=== PATIENT | female | born 1965 | race Caucasian/White ===

== ENCOUNTER 2019-03-23 10:24 | Emergency (ER) | payer SELFPAY ==
[~2019-03-23] VITALS: Ht 167.6 cm; Wt 86.4 kg
[2019-03-23 10:56] LABS: BILIRUBIN,URINE NEGATIVE (NEGATIVE); GLUCOSE, URINE (UA) NEGATIVE (NEGATIVE); KETONES,URINE NEGATIVE (NEGATIVE); LEUKOCYTE ESTERASE ,URINE MODERATE (NEGATIVE); NITRATE,URINE NEGATIVE (NEGATIVE); OCCULT BLOOD,URINE TRACE (NEGATIVE); PH,URINE 7.5 (5.0-8.0); PROTEIN,URINE NEGATIVE (NEGATIVE); UROBILINOGEN,URINE 0.2 mg/dL (<=1.0)
[2019-03-23 10:57] LABS: APPEARANCE,URINE HAZY (CLEAR)
[2019-03-23 11:05] LABS: BACTERIA,URINE Rare /HPF (None Seen); RBC,URINE 0-2 /HPF (0-2); RENAL EPITHELIAL CELLS,URINE Moderate /LPF (None Seen); SQUAMOUS EPITHELIAL CELL,UR Moderate /LPF (None Seen)
[2019-03-23 11:10] LABS: BASOPHILS % (AUTO) 0.3 % (0.0-2.0); EOSINOPHILS % (AUTO) 1.4 % (1.0-6.0); HEMATOCRIT 39.2 % (36-46); HEMOGLOBIN 12.7 g/dL (12.0-16.0); LYMPHOCYTES # (AUTO) 1.7 K/uL (1.0-4.8); LYMPHOCYTES % (AUTO) 32.1 % (22.0-44.0); MEAN CORPUSCULAR HGB CONC 32.5 G/dL (31.0-37.0); MEAN CORPUSCULAR VOLUME 89 fL (80-100); MONOCYTES # (AUTO) 0.3 K/uL (0.1-1.0); MONOCYTES % (AUTO) 6.4 % (2.0-9.0); NEUTROPHILS # (AUTO) 3.2 K/uL (1.8-7.7); NEUTROPHILS % (AUTO) 59.8 % (40.0-70.0); PLATELET COUNT (AUTO) 260 K/uL (150-450); RED BLOOD CELL COUNT(AUTO) 4.38 MIL/uL (4.00-5.20); RED CELL DISTRIBUTION WIDTH 13.9 % (11.5-14.5)
[2019-03-23 11:20] LABS: CALCIUM, TOTAL 9.5 mg/dL (8.8-10.5); CREATININE 1.07 mg/dL (0.60-1.30); POTASSIUM 3.8 mmol/L (3.5-5.1)
[2019-03-23 11:27] LABS: ALBUMIN 3.8 g/dL (3.4-5.0); BILIRUBIN,TOTAL 0.3 mg/dL (0.1-1.0); TOTAL PROTEIN, SERUM 7.7 g/dL (6.4-8.2)
[2019-03-23 13:39] VITALS: BP 134/77
== END 2019-03-23 14:22 | disposition home or self-care (01) ==
LOC: EMS 10:25
DX: F43.9 Reaction to severe stress, unspecified (principal); R07.89 Other chest pain; R42 Dizziness and giddiness; I10 Essential (primary) hypertension
CPT/HCPCS: 87086; 93005

== ENCOUNTER 2019-10-18 03:42 | Emergency (ER) | payer MEDICAID, OTHER ==
[~2019-10-18] VITALS: Ht 167.6 cm; Wt 90.0 kg
[2019-10-18] MEDS ORDERED: SODIUM CHLORIDE 0.9% 1,000 ML IV ONE (04:30)
[2019-10-18] MEDS ORDERED: ONDANSETRON HCL 4 MG/2 ML VIAL IVP ONE (04:30)
[2019-10-18] MEDS ORDERED: KETOROLAC TROMETHAMINE 30 MG/ML VIAL IVP ONE (04:30)
[2019-10-18] MEDS ORDERED: ACETAMINOPHEN 500 MG TABLET PO ONE (05:00)
[2019-10-18 05:05] LABS: BASOPHILS % (AUTO) 0.2 % (0.0-2.0); EOSINOPHILS % (AUTO) 0 % (1.0-6.0); HEMATOCRIT 36.1 % (36-46); HEMOGLOBIN 11.8 g/dL (12.0-16.0); LYMPHOCYTES # (AUTO) 0.4 K/uL (1.0-4.8); LYMPHOCYTES % (AUTO) 8.3 % (22.0-44.0); MEAN CORPUSCULAR HGB CONC 32.7 G/dL (31.0-37.0); MEAN CORPUSCULAR VOLUME 89 fL (80-100); MONOCYTES # (AUTO) 0.2 K/uL (0.1-1.0); MONOCYTES % (AUTO) 3.8 % (2.0-9.0); NEUTROPHILS # (AUTO) 3.9 K/uL (1.8-7.7); PLATELET COUNT (AUTO) 192 K/uL (150-450); RED BLOOD CELL COUNT(AUTO) 4.07 MIL/uL (4.00-5.20); RED CELL DISTRIBUTION WIDTH 13.9 % (11.5-14.5)
[2019-10-18 05:06] LABS: NEUTROPHILS % (AUTO) 87.7 % (40.0-70.0)
[2019-10-18 05:14] LABS: CALCIUM, TOTAL 8.2 mg/dL (8.8-10.5); CREATININE 1.05 mg/dL (0.60-1.30); POTASSIUM 3.8 mmol/L (3.5-5.1)
[2019-10-18 05:20] LABS: ALBUMIN 3.1 g/dL (3.4-5.0); BILIRUBIN,TOTAL 0.2 mg/dL (0.1-1.0); TOTAL PROTEIN, SERUM 6.7 g/dL (6.4-8.2)
[2019-10-18 05:22] LABS: LACTIC ACID 0.6 mmol/L (0.4-2.0)
[2019-10-18 05:25] LABS: PLATELET MORPHOLOGY COMMENT GIANT PLTS PRESENT
[2019-10-18 05:32] LABS: APPEARANCE,URINE CLEAR (CLEAR); BILIRUBIN,URINE NEGATIVE (NEGATIVE); GLUCOSE, URINE (UA) NEGATIVE (NEGATIVE); KETONES,URINE NEGATIVE (NEGATIVE); LEUKOCYTE ESTERASE ,URINE NEGATIVE (NEGATIVE); NITRATE,URINE NEGATIVE (NEGATIVE); OCCULT BLOOD,URINE TRACE (NEGATIVE); PROTEIN,URINE TRACE (NEGATIVE); UROBILINOGEN,URINE 0.2 mg/dL (<=1.0)
[2019-10-18 05:37] LABS: BACTERIA,URINE None Seen /HPF (None Seen); RBC,URINE 0-2 /HPF (0-2); SQUAMOUS EPITHELIAL CELL,UR Many /LPF (None Seen)
[2019-10-18 06:22] VITALS: BP 106/65
[2019-10-20] MEDS ORDERED: IBUP-2070 PO (08:51)
[2019-10-20] MEDS ORDERED: CEPH-582 PO (08:51)
== END 2019-10-18 06:24 | disposition home or self-care (01) ==
LOC: EMS 03:42
DX: K52.9 Noninfective gastroenteritis and colitis, unspecified (principal); B97.29 Other coronavirus as the cause of diseases classified elsewhere
CPT/HCPCS: 36415; 71045; 74176; 80053; 81001; 83605; 83690; 84484; 85025; 87635; 93005; 96374; 96375; 99285; J1885; J2405; J7030; 96361

== ENCOUNTER 2023-08-04 17:38 | Inpatient (IN) | payer OTHER ==
[~2023-08-04] VITALS: Ht 167.6 cm; Wt 78.7 kg
[~2023-08-04 17:38] MED LIST: ACYC-138 PO; ASPI-1444 PO; ATOR20TA PO; DEXA4 PO; FURO20 PO; LENA25CA PO; LORA10TA7 PO; MULT-1192 PO; OXYB5TAB20 PO; PANT-31 PO
[2023-08-04] MEDS ORDERED: DEXA4TAB PO (17:52)
[2023-08-04 19:47] LABS: APPEARANCE,URINE CLEAR (CLEAR); BILIRUBIN,URINE NEGATIVE (NEGATIVE); COLOR,URINE YELLOW (YELLOW); GLUCOSE, URINE (UA) NEGATIVE (NEGATIVE); KETONES,URINE NEGATIVE (NEGATIVE); LEUKOCYTE ESTERASE ,URINE NEGATIVE (NEGATIVE); NITRATE,URINE NEGATIVE (NEGATIVE); OCCULT BLOOD,URINE LARGE (NEGATIVE); PH,URINE 7.5 (5.0-8.0); PROTEIN,URINE >600,SEE CONFIRM mg/dL (NEGATIVE); UROBILINOGEN,URINE <=1.0 mg/dL (<=1.0)
[2023-08-04 19:50] LABS: BASOPHILS % (AUTO) 0.2 % (0.0-2.0); EOSINOPHILS % (AUTO) 0.3 % (1.0-6.0); HEMATOCRIT 35.2 % (36-46); HEMOGLOBIN 11.8 g/dL (12.0-16.0); LYMPHOCYTES # (AUTO) 0.2 K/uL (1.0-4.8); LYMPHOCYTES % (AUTO) 16.6 % (22.0-44.0); MEAN CORPUSCULAR HEMOGLOBIN 31.2 pg (26.0-34.0); MEAN CORPUSCULAR HGB CONC 33.5 G/dL (31.0-37.0); MEAN CORPUSCULAR VOLUME 93 fL (80-100); MONOCYTES # (AUTO) 0.1 K/uL (0.1-1.0); NEUTROPHILS % (AUTO) 76.9 % (40.0-70.0); PLATELET COUNT (AUTO) 188 K/uL (150-450); RED BLOOD CELL COUNT(AUTO) 3.79 MIL/uL (4.00-5.20); RED CELL DISTRIBUTION WIDTH 16.8 % (11.5-14.5); WHITE BLOOD COUNT (AUTO) 1.3 K/uL (4.5-11.0)
[2023-08-04 19:51] LABS: CALCIUM, TOTAL 8.4 mg/dL (8.8-10.5); CREATININE 0.98 mg/dL (0.60-1.30); POTASSIUM 3.6 mmol/L (3.5-5.1)
[2023-08-04 19:57] LABS: ALBUMIN 1.9 g/dL (3.4-5.0); BILIRUBIN,TOTAL 0.3 mg/dL (0.1-1.0)
[2023-08-04 19:59] LABS: SULFOSALICYLIC ACID,URINE 3+ (Negative)
[2023-08-04] MEDS ORDERED: 0.9% SODIUM CHLORIDE 10 ML SYRINGE IVP PRN (20:00)
[2023-08-04] MEDS ORDERED: SODIUM CHLORIDE 0.9% 2,350 ML IV ONE (20:00)
[2023-08-04 20:03] LABS: BACTERIA,URINE None Seen /HPF (None Seen); SQUAMOUS EPITHELIAL CELL,UR Few /LPF (None Seen); WBC,URINE 0-2 /HPF (0-5)
[2023-08-04] MEDS ORDERED: CefTRIAXone 1 GM/DEXTROSE 50 ML IV ONE (20:15)
[2023-08-04] MEDS ORDERED: IOHEXOL 9 MG/ML 500 ML BOTTLE PO ONE (20:15)
[2023-08-04 20:39] LABS: PROTHROMBIN TIME 10.9 SEC (9.4-11.6)
[2023-08-04 20:52] LABS: LACTIC ACID 2.7 mmol/L (0.4-2.0)
[2023-08-04 20:58] LABS: INFLUENZA A-RTPCR,COMBO NEGATIVE FOR FLU A (NEGATIVE); INFLUENZA B-RTPCR,COMBO NEGATIVE FOR FLU B (NEGATIVE); RESPIRATORY SYNCYTIAL VRS-PCR NEGATIVE (NEGATIVE); SARS COVID19 RTPCR, COMBO NEGATIVE (NEGATIVE)
[2023-08-04] MEDS ORDERED: IOHEXOL 350 MG/ML 100 ML VIAL ONE (22:33)
[2023-08-04] MEDS ORDERED: SODIUM CHLORIDE 0.9% 100 ML ONE (22:33)
[2023-08-04] MEDS ORDERED: AZITHROMYCIN 500 MG/NS 250 ML IV ONE (23:45)
[2023-08-05] MEDS ORDERED: FentaNYL CITRATE PF 100 MCG/2 ML VIAL IVP ONE
[2023-08-05] MEDS ORDERED: ACETAMINOPHEN 325 MG TABLET PO PRN ×2 (00:30→07:45)
[2023-08-05] MEDS ORDERED: 0.9% SODIUM CHLORIDE 10 ML SYRINGE IVP PRN (00:30)
[2023-08-05] MEDS ORDERED: ONDANSETRON HCL 4 MG/2 ML VIAL IVP PRN ×2 (00:30→07:45)
[2023-08-05 01:54] VITALS: BP 142/59; PULSE 78; RESP 20; TEMP 100.1
[2023-08-05 06:07] VITALS: BP 105/49; PULSE 67; RESP 18; TEMP 98.2
[2023-08-05 07:18] VITALS: BP 109/55; PULSE 64; RESP 18; TEMP 98.3
[2023-08-05 07:31] LABS: ANION GAP 8 mmol/L (8-16); CALCIUM, TOTAL 7.8 mg/dL (8.8-10.5); CARBON DIOXIDE 27 mmol/L (22-29); CHLORIDE 104 mmol/L (98-107); CREATININE 0.91 mg/dL (0.60-1.30); GLOMERULAR FILTR. RATE CALC > 60 mL/min (>60); GLUCOSE,RANDOM 83 mg/dL (70-110); POTASSIUM 3.7 mmol/L (3.5-5.1); SODIUM SERUM 139 mmol/L (136-145); UREA NITROGEN, BLOOD 6 mg/dL (7-18)
[2023-08-05] MEDS ORDERED: BISACODYL 10 MG RECTAL RECTAL SUPPOSITORY PR PRN (07:45)
[2023-08-05] MEDS ORDERED: ZOLPIDEM TARTRATE 5 MG TABLET PO PRN (07:45)
[2023-08-05] MEDS ORDERED: HYDROCODONE/ACETAMINOPHEN 5-325 MG TABLET PO PRN (07:45)
[2023-08-05] MEDS ORDERED: MAGNESIUM HYDROXIDE SUSPENSION 30 ML UDCUP PO PRN (07:45)
[2023-08-05] MEDS ORDERED: MORPHINE SULFATE 2 MG/ML SYRINGE IVP PRN (07:45)
[2023-08-05] MEDS ORDERED: ALBUTEROL SULFATE 2.5 MG/0.5 ML NEB SOLUTION NEB PRN (07:45)
[2023-08-05] MEDS ORDERED: IPRATROPIUM BROMIDE 0.5 MG/2.5 ML NEB SOLUTION NEB PRN (07:45)
[2023-08-05 07:55] LABS: BASOPHILS % (AUTO) 0.4 % (0.0-2.0); EOSINOPHILS % (AUTO) 0.3 % (1.0-6.0); HEMATOCRIT 31.8 % (36-46); HEMOGLOBIN 10.8 g/dL (12.0-16.0); LYMPHOCYTES # (AUTO) 0.2 K/uL (1.0-4.8); LYMPHOCYTES % (AUTO) 25.8 % (22.0-44.0); MEAN CORPUSCULAR HEMOGLOBIN 31.4 pg (26.0-34.0); MEAN CORPUSCULAR HGB CONC 33.8 G/dL (31.0-37.0); MEAN CORPUSCULAR VOLUME 93 fL (80-100); MONOCYTES # (AUTO) 0.1 K/uL (0.1-1.0); MONOCYTES % (AUTO) 8.5 % (2.0-9.0); NEUTROPHILS # (AUTO) 0.6 K/uL (1.8-7.7); PLATELET COUNT (AUTO) 169 K/uL (150-450); RED BLOOD CELL COUNT(AUTO) 3.43 MIL/uL (4.00-5.20); RED CELL DISTRIBUTION WIDTH 16.9 % (11.5-14.5)
[2023-08-05] MEDS ORDERED: SODIUM CHLORIDE 0.9% 500 ML IV ONE (08:55)
[2023-08-05] MEDS: HEPARIN SODIUM,PORCINE 5,000 UNITS/ML VIAL SQ SCH ×3 (08:56→23:27)
[2023-08-05] MEDS: PANTOPRAZOLE SODIUM 40 MG DR TABLET PO SCH (08:57)
[2023-08-05] MEDS: ASPIRIN 81 MG DR TABLET PO SCH (08:57)
[2023-08-05] MEDS: FUROSEMIDE 20 MG TABLET PO SCH (08:57)
[2023-08-05] MEDS: LEVOFLOXACIN 750 MG/D5% WATER 150 ML IV SCH (08:58)
[2023-08-05] MEDS: OXYBUTYNIN CHLORIDE 5 MG TABLET PO SCH ×2 (08:58→20:59)
[2023-08-05] MEDS: LORATADINE 10 MG TABLET PO SCH (08:58)
[2023-08-05] MEDS: DOCUSATE SODIUM 100 MG CAPSULE PO SCH ×2 (08:59→20:57)
[2023-08-05 11:29] VITALS: BP 121/64; PULSE 71; RESP 19; TEMP 98.3
[2023-08-05 15:34] VITALS: BP 124/72; PULSE 70; RESP 18; TEMP 98.3
[2023-08-05] MEDS: BENZONATATE 100 MG CAPSULE PO SCH ×2 (18:03→20:59)
[2023-08-05] MEDS: ATORVASTATIN CALCIUM 20 MG TABLET PO SCH (20:59)
[2023-08-05] MEDS ORDERED: BENZONATATE 100 MG CAPSULE PO SCH (21:00)
[2023-08-05 21:30] VITALS: BP 139/76; PULSE 88; RESP 18; TEMP 98.4
[2023-08-06] VITALS (7 sets, daily range): BP systolic 110–143; BP diastolic 45–82; PULSE 59–83; RESP 18–19; TEMP 98.2–98.6
[2023-08-06 07:01] LABS: BASOPHILS % (AUTO) 0.3 % (0.0-2.0); EOSINOPHILS % (AUTO) 2.7 % (1.0-6.0); HEMATOCRIT 31.2 % (36-46); HEMOGLOBIN 10.8 g/dL (12.0-16.0); LYMPHOCYTES # (AUTO) 0.2 K/uL (1.0-4.8); LYMPHOCYTES % (AUTO) 27.5 % (22.0-44.0); MEAN CORPUSCULAR HEMOGLOBIN 31.7 pg (26.0-34.0); MEAN CORPUSCULAR HGB CONC 34.7 G/dL (31.0-37.0); MEAN CORPUSCULAR VOLUME 92 fL (80-100); MONOCYTES # (AUTO) 0.1 K/uL (0.1-1.0); MONOCYTES % (AUTO) 10.7 % (2.0-9.0); NEUTROPHILS # (AUTO) 0.5 K/uL (1.8-7.7); NEUTROPHILS % (AUTO) 58.8 % (40.0-70.0); RED CELL DISTRIBUTION WIDTH 16.4 % (11.5-14.5)
[2023-08-06 07:06] LABS: CARBON DIOXIDE 31 mmol/L (22-29); CREATININE 0.81 mg/dL (0.60-1.30); GLOMERULAR FILTR. RATE CALC > 60 mL/min (>60); GLUCOSE,RANDOM 90 mg/dL (70-110); UREA NITROGEN, BLOOD 6 mg/dL (7-18)
[2023-08-06 07:16] LABS: ANION GAP 5 mmol/L (8-16); CHLORIDE 105 mmol/L (98-107); POTASSIUM 3.3 mmol/L (3.5-5.1); SODIUM SERUM 141 mmol/L (136-145)
[2023-08-06 07:20] LABS: PLATELET COUNT (AUTO) 158 K/uL (150-450)
[2023-08-06 07:23] LABS: WHITE BLOOD COUNT (AUTO) 1.2 K/uL (4.5-11.0)
[2023-08-06] MEDS: FUROSEMIDE 20 MG TABLET PO SCH (09:00)
[2023-08-06] MEDS: DOCUSATE SODIUM 100 MG CAPSULE PO SCH ×2 (09:00→21:39)
[2023-08-06] MEDS: LEVOFLOXACIN 750 MG/D5% WATER 150 ML IV SCH (10:10)
[2023-08-06] MEDS: HEPARIN SODIUM,PORCINE 5,000 UNITS/ML VIAL SQ SCH ×3 (10:11→23:59)
[2023-08-06] MEDS: ASPIRIN 81 MG DR TABLET PO SCH (10:11)
[2023-08-06] MEDS: PANTOPRAZOLE SODIUM 40 MG DR TABLET PO SCH (10:12)
[2023-08-06] MEDS: LORATADINE 10 MG TABLET PO SCH (10:12)
[2023-08-06] MEDS: BENZONATATE 100 MG CAPSULE PO SCH ×3 (10:12→21:39)
[2023-08-06] MEDS: OXYBUTYNIN CHLORIDE 5 MG TABLET PO SCH ×2 (10:13→21:39)
[2023-08-06] MEDS ORDERED: POTASSIUM CHL 10 MEQ/WATER 50 ML IV PRN (13:00)
[2023-08-06] MEDS ORDERED: POTASSIUM CHLORIDE 20 MEQ ER TABLET PO PRN (13:00)
[2023-08-06] MEDS ORDERED: ALBUTEROL SULFATE 2.5 MG/0.5 ML NEB SOLUTION NEB PRN (13:00)
[2023-08-06] MEDS: ATORVASTATIN CALCIUM 20 MG TABLET PO SCH (21:39)
[2023-08-07 05:11] VITALS: BP 111/70; PULSE 65; RESP 20; TEMP 98
[2023-08-07 06:51] LABS: ANION GAP 8 mmol/L (8-16); CALCIUM, TOTAL 8.4 mg/dL (8.8-10.5); CARBON DIOXIDE 30 mmol/L (22-29); CHLORIDE 105 mmol/L (98-107); CREATININE 0.85 mg/dL (0.60-1.30); GLOMERULAR FILTR. RATE CALC > 60 mL/min (>60); GLUCOSE,RANDOM 97 mg/dL (70-110); POTASSIUM 3.6 mmol/L (3.5-5.1); SODIUM SERUM 143 mmol/L (136-145); UREA NITROGEN, BLOOD 8 mg/dL (7-18)
[2023-08-07 08:10] LABS: BASOPHILS % (AUTO) 0.9 % (0.0-2.0); EOSINOPHILS % (AUTO) 9.2 % (1.0-6.0); HEMATOCRIT 33.7 % (36-46); HEMOGLOBIN 11.5 g/dL (12.0-16.0); LYMPHOCYTES # (AUTO) 0.2 K/uL (1.0-4.8); LYMPHOCYTES % (AUTO) 20.1 % (22.0-44.0); MEAN CORPUSCULAR HEMOGLOBIN 31.5 pg (26.0-34.0); MEAN CORPUSCULAR HGB CONC 34.3 G/dL (31.0-37.0); MEAN CORPUSCULAR VOLUME 92 fL (80-100); MONOCYTES # (AUTO) 0.1 K/uL (0.1-1.0); MONOCYTES % (AUTO) 12.5 % (2.0-9.0); NEUTROPHILS # (AUTO) 0.5 K/uL (1.8-7.7); NEUTROPHILS % (AUTO) 57.3 % (40.0-70.0); PLATELET COUNT (AUTO) 122 K/uL (150-450); RED BLOOD CELL COUNT(AUTO) 3.66 MIL/uL (4.00-5.20); RED CELL DISTRIBUTION WIDTH 16.2 % (11.5-14.5)
[2023-08-07 08:26] LABS: WHITE BLOOD COUNT (AUTO) 0.9 K/uL (4.5-11.0)
[2023-08-07 08:40] VITALS: BP 109/48; PULSE 78; RESP 19; TEMP 97.7
[2023-08-07] MEDS: HEPARIN SODIUM,PORCINE 5,000 UNITS/ML VIAL SQ SCH ×3 (08:43→23:48)
[2023-08-07] MEDS: BENZONATATE 100 MG CAPSULE PO SCH ×3 (08:43→20:07)
[2023-08-07] MEDS: DOCUSATE SODIUM 100 MG CAPSULE PO SCH ×2 (08:43→20:07)
[2023-08-07] MEDS: FUROSEMIDE 20 MG TABLET PO SCH (08:43)
[2023-08-07] MEDS: ASPIRIN 81 MG DR TABLET PO SCH (08:43)
[2023-08-07] MEDS: PANTOPRAZOLE SODIUM 40 MG DR TABLET PO SCH (08:43)
[2023-08-07] MEDS: OXYBUTYNIN CHLORIDE 5 MG TABLET PO SCH ×2 (08:43→20:07)
[2023-08-07] MEDS: LEVOFLOXACIN 750 MG/D5% WATER 150 ML IV SCH (08:46)
[2023-08-07] MEDS: LORATADINE 10 MG TABLET PO SCH (09:00)
[2023-08-07] MEDS ORDERED: SODIUM CHLORIDE 0.9% 500 ML IV ONE (09:03)
[2023-08-07 17:11] VITALS: BP 122/74; PULSE 70; RESP 19; TEMP 98.2
[2023-08-07] MEDS: ATORVASTATIN CALCIUM 20 MG TABLET PO SCH (20:07)
[2023-08-07 20:09] VITALS: BP 116/68; PULSE 78; RESP 19; TEMP 98.4
[2023-08-08 04:31] VITALS: BP 109/59; PULSE 63; RESP 19; TEMP 98.4
[2023-08-08 06:33] LABS: BASOPHILS % (AUTO) 0.6 % (0.0-2.0); EOSINOPHILS % (AUTO) 8.9 % (1.0-6.0); HEMATOCRIT 33.3 % (36-46); HEMOGLOBIN 11.4 g/dL (12.0-16.0); LYMPHOCYTES # (AUTO) 0.3 K/uL (1.0-4.8); LYMPHOCYTES % (AUTO) 27.3 % (22.0-44.0); MEAN CORPUSCULAR HEMOGLOBIN 31.4 pg (26.0-34.0); MEAN CORPUSCULAR HGB CONC 34.2 G/dL (31.0-37.0); MEAN CORPUSCULAR VOLUME 92 fL (80-100); MONOCYTES # (AUTO) 0.1 K/uL (0.1-1.0); MONOCYTES % (AUTO) 11.9 % (2.0-9.0); NEUTROPHILS # (AUTO) 0.6 K/uL (1.8-7.7); NEUTROPHILS % (AUTO) 51.3 % (40.0-70.0); PLATELET COUNT (AUTO) 123 K/uL (150-450); RED BLOOD CELL COUNT(AUTO) 3.64 MIL/uL (4.00-5.20); RED CELL DISTRIBUTION WIDTH 16.7 % (11.5-14.5); WHITE BLOOD COUNT (AUTO) 1.1 K/uL (4.5-11.0)
[2023-08-08 06:57] LABS: CALCIUM, TOTAL 8.4 mg/dL (8.8-10.5); CREATININE 0.99 mg/dL (0.60-1.30); POTASSIUM 3.8 mmol/L (3.5-5.1)
[2023-08-08 07:39] VITALS: BP 100/70; PULSE 73; RESP 16; TEMP 98.5
[2023-08-08] MEDS ORDERED: CefTRIAXone 1 GM/DEXTROSE 50 ML IV SCH (08:00)
[2023-08-08] MEDS: BENZONATATE 100 MG CAPSULE PO SCH ×2 (08:28→16:00)
[2023-08-08] MEDS: LORATADINE 10 MG TABLET PO SCH (08:29)
[2023-08-08] MEDS: FUROSEMIDE 20 MG TABLET PO SCH (08:29)
[2023-08-08] MEDS: OXYBUTYNIN CHLORIDE 5 MG TABLET PO SCH (08:29)
[2023-08-08] MEDS: DOCUSATE SODIUM 100 MG CAPSULE PO SCH (08:29)
[2023-08-08] MEDS: PANTOPRAZOLE SODIUM 40 MG DR TABLET PO SCH (08:29)
[2023-08-08] MEDS: ASPIRIN 81 MG DR TABLET PO SCH (08:29)
[2023-08-08] MEDS: HEPARIN SODIUM,PORCINE 5,000 UNITS/ML VIAL SQ SCH ×2 (08:30→16:00)
[2023-08-08] MEDS ORDERED: AZITHROMYCIN 500 MG/NS 250 ML IV SCH (09:00)
[2023-08-08] MEDS ORDERED: AZIT-104 PO (12:25)
[2023-08-08] MEDS ORDERED: CEPH-558 PO (12:25)
== END 2023-08-08 15:55 | disposition home or self-care (01) | DRG 137 ==
LOC: EMS 17:40 → 5N 08-05 00:16 → 6S 08-06 22:38
PROVIDERS: ADMIT Internal Medicine; ATTEND Internal Medicine
DX: J15.69 Pneumonia due to other Gram-negative bacteria (principal); E85.9 Amyloidosis, unspecified; R65.10 Systemic inflammatory response syndrome (SIRS) of non-infectious origin without acute organ dysfunction; D70.1 Agranulocytosis secondary to cancer chemotherapy; C90.00 Multiple myeloma not having achieved remission; I50.9 Heart failure, unspecified; E78.00 Pure hypercholesterolemia, unspecified; K74.60 Unspecified cirrhosis of liver; Z20.822 Contact with and (suspected) exposure to COVID-19; T45.1X5A Adverse effect of antineoplastic and immunosuppressive drugs, initial encounter; E87.6 Hypokalemia; Y92.89 Other specified places as the place of occurrence of the external cause; Z79.82 Long term (current) use of aspirin; Z79.899 Other long term (current) drug therapy; Z90.710 Acquired absence of both cervix and uterus
CPT/HCPCS: 0241U; 71045; 74177; 80048; 80053; 81001; 81002; 83605; 83690; 84132; 84145; 85025; 85610; 87040; 93005; 99291; J0456; J0696; J1644; J1956; J3010; J7030; J7040; J7050; Q9967; 36415-L1; 36415-TC